=== PATIENT | female | born 1985 | race Caucasian/White ===

== ENCOUNTER 2017-11-27 15:24 | Emergency (ER) | payer BC ==
[~2017-11-27] VITALS: Ht 172.7 cm; Wt 113.0 kg
[2017-11-27 16:04] VITALS: BP 147/105
== END 2017-11-27 18:11 | disposition left against medical advice (07) ==
LOC: EME 15:24
DX: Z00.8 Encounter for other general examination (principal); Z53.21 Procedure and treatment not carried out due to patient leaving prior to being seen by health care provider